=== PATIENT | male | born 1995 | race Two or more races ===

== ENCOUNTER 2018-12-04 14:52 | Emergency (ER) | payer SELFPAY ==
[~2018-12-04] VITALS: Ht 172.7 cm; Wt 108.9 kg
[2018-12-04 15:43] LABS: Basophils # (auto) 0 uL; Basophils % (auto) 0.3 % (0.0-2.0); Eosinophils # (auto) 0.1 uL; Eosinophils % (auto) 1.4 % (0.0-7.0); Lymphocytes % (auto) 13.3 % (10.0-50.0); Mean Corpuscular Hemoglobin 29.8 pg (28.0-32.0); Mean Corpuscular Hgb Conc. 33.9 g/dL (32.0-36.0); Mean Corpuscular Volume 87.9 fL (80.0-100.0); Monocytes # (auto) 0.5 uL; Monocytes % (auto) 6.2 % (0.0-12.0); Neutrophils # (auto) 5.9 uL; Neutrophils % (auto) 78.8 % (37.0-80.0); Platelet Count (auto) 288 10^3/uL (140-450); Red Blood Cells 5.35 10^6/uL (4.5-5.90); White Blood Cell 7.5 10^3/uL (4.4-10.8)
[2018-12-04 15:46] LABS: Albumin 3.9 g/dL (3.4-5.0); Calcium 9.3 mg/dL (8.5-10.1); Potassium 3.8 mmol/L (3.5-5.1)
[2018-12-04 15:49] LABS: BUN/Creatinine Ratio 7.5; Bilirubin, Total 0.7 mg/dL (0.2-1.0); Total Protein 8.5 g/dL (6.4-8.2)
[2018-12-04 17:47] VITALS: BP 131/78
== END 2018-12-04 17:50 | disposition home or self-care (01) ==
LOC: ER 14:52
DX: K52.9 Noninfective gastroenteritis and colitis, unspecified (principal)
CPT/HCPCS: 36415; 74176; 80053; 85025